=== PATIENT | male | born 1965 | race American Indian/Alaskan Native ===

== ENCOUNTER 2019-11-28 08:16 | Inpatient (IN) | payer BC ==
[2019-11-28 08:57] LABS: Basophils # (Auto) 0.1 K/mm3 (0.0-0.1); Basophils % (Auto) 1.1 % (0.0-1.8); Eosinophils % (Auto) 0.1 % (0.0-4.3); Hematocrit 41.6 % (35.5-45.6); Hemoglobin 14.1 gm/dl (11.8-15.2); Lymphocytes # (Auto) 0.9 K/mm3 (1.2-5.4); Lymphocytes % (Auto) 9.4 % (13.4-35.0); Mean Corpuscular HGB Conc 34 % (32-34); Mean Corpuscular Volume 90 fl (84-94); Monocytes # (Auto) 0.5 K/mm3 (0.0-0.8); Monocytes % (Auto) 4.6 % (0.0-7.3); Platelet Count 323 K/mm3 (140-440); Red Blood Count 4.63 M/mm3 (3.65-5.03); Red Cell Distribution Width 15.9 % (13.2-15.2)
[2019-11-28 09:12] LABS: Alanine Aminotransferase 15 units/L (7-56); BUN/Creatinine Ratio 18; Blood Urea Nitrogen 18 mg/dL (9-20); Calcium 10.2 mg/dL (8.4-10.2); Hemolysis Index 10
[2019-11-28] MEDS ORDERED: fentaNYL 100 MCG/2 ML INJ IV ONE (09:41)
[2019-11-28] MEDS ORDERED: ONDANSETRON 4 MG/2 ML INJ IV ONE (09:41)
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
[2019-11-28 12:21] LABS: Bilirubin,Urine NEG (Negative); Blood,Urine NEG (Negative); Color,Urine Yellow (Yellow); Mucus,Urine FEW /HPF
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
[2019-11-29] MEDS: MORPHINE 2 MG/1 ML INJ IV PRN ×4 (05:42→20:38)
[2019-11-29] MEDS: SODIUM CHLORIDE 0.9% 1000 ML 1,000 ML IV SCH ×3 (05:46→21:29)
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
--- NOTE | 2019-11-29 10:45 | Progress Note ---
Assessment and Plan - Patient Problems (1) Small bowel obstruction Current Visit: Yes Status: Acute Plan to address problem: Pt stable. Patient is currently in the process of completing the small bowel follow-through series. We are waiting the official report. Would hold off on starting a diet until we have the report back. We may need to do additional studies based on what the report shows. We will follow along. Please call with any questions Time=10min Subjective Date of service: 11/29/19 Patient Reports: Positive: no new complaints, pain is less, flatus, bowel movement, other (frustrated by lack of care). Negative: nausea, vomiting Objective Vital Signs - 12hr 11/28/19 11/28/19 11/28/19 22:46 23:00 23:16 Temperature Pulse Rate Respiratory Rate Blood Pressure 137/84 137/84 Blood Pressure [Left] O2 Sat by Pulse 99 98 98 Oximetry 11/28/19 11/28/19 11/28/19 23:20 23:30 23:46 Temperature Pulse Rate Respiratory Rate Blood Pressure 137/84 137/84 137/84 Blood Pressure [Left] O2 Sat by Pulse 100 97 98 Oximetry 11/29/19 11/29/19 11/29/19 00:16 00:21 04:25 Temperature 99.0 F 99.0 F 98.6 F Pulse Rate 88 88 84 Respiratory 17 17 17 Rate Blood Pressure 144/96 152/89 Blood Pressure 143/92 [Left] O2 Sat by Pulse 98 98 98 Oximetry 11/29/19 11/29/19 08:03 08:59 Temperature 98.8 F Pulse Rate 68 Respiratory 20 Rate Blood Pressure Blood Pressure 143/83 [Left] O2 Sat by Pulse 98 98 Oximetry - General physical appearance no distress, no pain, other (looks well) - Eyes normal occular movement - Respiratory normal expansion, normal respiratory effort - Abdomen soft, not tender, distended, not guarding, not rigid - Integumentary no rash, no growths, no abnormal pigmentation - Psychiatric oriented to time, oriented to person, oriented to place, speech is normal, memory intact - Labs 11/28/19 08:46 11/28/19 08:46
--- NOTE | 2019-11-29 15:51 | Progress Note ---
Assessment and Plan - Patient Problems (1) Small bowel obstruction Current Visit: Yes Status: Acute Plan to address problem: Conservative treatment NGT to low gumco suction sbft sURGERY consult appreciated (2) CAD (coronary artery disease) Current Visit: Yes Status: Chronic Qualifiers: Coronary Disease-Associated Artery/Lesion type: [place] artery [place] vs. transplanted heart: [place] heart Plan to address problem: Hold plavix and ismo (3) HTN (hypertension) Current Visit: Yes Status: Chronic Qualifiers: Hypertension type: essential hypertension Qualified Code(s): I10 - Essential (primary) hypertension Plan to address problem: Catapres patch prn (4) HLD (hyperlipidemia) Current Visit: Yes Status: Chronic Qualifiers: Hyperlipidemia type: mixed hyperlipidemia Qualified Code(s): E78.2 - Mixed hyperlipidemia Plan to address problem: Hold statins (5) DVT prophylaxis Current Visit: Yes Status: Acute Plan to address problem: On Heparin Subjective Date of service: 11/29/19 Principal diagnosis: SBO Interval history: 54-year-old male present with a chief complaint of abdominal pain for 2 to 3 weeks. The patient states he has had fullness in his abdomen for the past 2 to 3 weeks. The patient states this morning developed a constant abdominal pain that waxes and wanes. Patient describes the pain as sharp and diffuse in nature. Patient states he took a laxative at 04: 00 and had a bowel movement here in the ED but has not changed his pain. Patient denies nausea/vomiting, dysuria or hematuria. Patient denies fever. Patient currently gives his pain a score of 8/10 pATIENT TO GET sbft. - Objective - Constitutional Vitals: Vital Signs - 12hr 11/29/19 11/29/19 11/29/19 04:25 08:03 08:59 Temperature 98.6 F 98.8 F Pulse Rate 84 68 Respiratory 17 20 Rate Blood Pressure 152/89 Blood Pressure 143/83 [Left] O2 Sat by Pulse 98 98 98 Oximetry 11/29/19 11:08 Temperature 98.6 F Pulse Rate 72 Respiratory 20 Rate Blood Pressure Blood Pressure 157/99 [Left] O2 Sat by Pulse 98 Oximetry General appearance: Present: no acute distress, well-nourished - EENT Eyes: PERRL, EOM intact ENT: hearing intact, clear oral mucosa Ears: bilateral: normal - Neck Neck: supple, normal ROM - Respiratory Respiratory effort: normal Respiratory: bilateral: CTA - Breasts Breasts: normal - Cardiovascular Heart rate: 78 Rhythm: regular Heart Sounds: Present: S1 & S2. Absent: gallop, rub Extremities: pulses intact, No edema, normal color, Full ROM - Gastrointestinal General gastrointestinal: Present: soft, tender, distended, normal bowel sounds, hypoactive bowel sounds - Genitourinary Male genitourinary: normal - Integumentary Integumentary: clear, warm, dry - Musculoskeletal Musculoskeletal: 1, strength equal bilaterally - Neurologic Neurologic: moves all extremities - Psychiatric Psychiatric: memory intact, appropriate mood/affect, intact judgment & insight - Labs CBC & Chem 7: 11/28/19 08:46 11/28/19 08:46
[2019-11-30] MEDS: MORPHINE 2 MG/1 ML INJ IV PRN ×4 (00:46→13:19)
[2019-11-30] MEDS: SODIUM CHLORIDE 0.9% 1000 ML 1,000 ML IV SCH (05:05)
--- NOTE | 2019-11-30 08:50 | Progress Note ---
Assessment and Plan - Patient Problems (1) Small bowel obstruction Current Visit: Yes Status: Acute Plan to address problem: Pt stable. Clinically, the patient appears to be doing well. Probably is back at baseline. We are waiting the official report of the small bowel follow through. We discussed 2 options based on the test results. If there is a clear issue that we can address surgically, then we may make arrangements during this hospitalization to address it. Otherwise, if there is no clear etiology for his issues, then we will discharge him and continue the evaluation as an outpatient. Patient was in agreement with the plan. We will follow along. Please call with any questions Time=10min Subjective Date of service: 11/30/19 Patient Reports: Positive: no new complaints, feels better, pain is less, tolerating liquids well, flatus, bowel movement. Negative: nausea, vomiting Objective Vital Signs - 12hr 11/29/19 11/29/19 11/30/19 21:08 23:19 00:46 Temperature 98.4 F Pulse Rate 58 L Respiratory 18 18 20 Rate Blood Pressure 146/82 O2 Sat by Pulse 97 Oximetry 11/30/19 11/30/19 11/30/19 01:00 01:16 04:05 Temperature 98.7 F Pulse Rate 71 Respiratory 20 18 18 Rate Blood Pressure 146/95 O2 Sat by Pulse 98 98 Oximetry 11/30/19 11/30/19 05:03 07:31 Temperature 98.0 F Pulse Rate 69 Respiratory 20 19 Rate Blood Pressure 154/97 O2 Sat by Pulse 97 Oximetry - General physical appearance no distress, no pain, other (looks well) - Eyes normal occular movement - Respiratory normal expansion, normal respiratory effort - Abdomen soft, not tender, distended (mild) - Integumentary no rash, no growths, no abnormal pigmentation - Psychiatric oriented to time, oriented to person, oriented to place, speech is normal, memory intact - Labs 11/28/19 08:46 11/28/19 08:46
[2019-11-30] MEDS ORDERED: METOCLOPRAMIDE 10 MG/2 ML INJ IV NR (12:07)
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
[2019-11-30] MEDS ORDERED: METOCLOPRAMIDE 10 MG/2 ML INJ IV STA (13:19)
--- NOTE | 2019-11-30 14:42 | Fluoroscopy Report ---
SMALL BOWEL SERIES HISTORY: Abdominal pain, partial small bowel obstruction FINDINGS: Transit time of the oral contrast through the small bowel loops is mildly delayed at 4 hours. There a re multiple mildly dilated loops of mid small bowel measuring up to 3 cm in diameter. The duodenum an d terminal ileum are normal caliber. These findings suggest a low-grade partial small bowel obstructi on in the mid to distal small bowel. The transition point is not clearly identified on small bowel se isabel or CT. These findings were discussed with Dr. Cuellar of surgery. Fluoroscopic time/images: None. Signer Name: Randell Tubbs Jr, MD Signed: 11/30/2019 2:39 PM Workstation Name: [id number]
[2019-11-30 17:26] VITALS: BP 139/76
--- NOTE | 2019-11-30 18:20 | Discharge Summary ---
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 A low-grade partial small bowel obstruction could be considered. Diffuse ileus and gastroenteritis could also be considered. Please correlate with the patient's clinical presentation. Mild hepatic steatosis. Small umbilical hernia containing fat. Small bowel series Transit time of the oral contrast through the small bowel loops is mildly delayed at 4 hours. There are multiple mildly dilated loops of mid small bowel measuring up to 3 cm in diameter. The duodenum and terminal ileum are normal caliber. These findings suggest a low-grade partial small bowel obstruction in the mid to distal small bowel. The transition point is not clearly identified on small bowel series or CT. These findings were discussed with Dr. Cuellar of surgery. Hospital course: 54-year-old male present with a chief complaint of abdominal pain for 2 to 3 weeks. The patient states he has had fullness in his abdomen for the past 2 to 3 weeks. The patient states this morning developed a constant abdominal pain that waxes and wanes. Patient describes the pain as sharp and diffuse in nature. Patient states he took a laxative at 04: 00 and had a bowel movement here in the ED but has not changed his pain. Patient denies nausea/vomiting, dysuria or hematuria. Patient denies fever. Patient currently gives his pain a score of 8/10 Small bowel follow-through--normal (1) Small bowel obstruction Current Visit: Yes Status: Acute Plan to address problem: Conservative treatment Resolved (2) CAD (coronary artery disease) Current Visit: Yes Status: Chronic Qualifiers: Coronary Disease-Associated Artery/Lesion type: [place] artery [place] vs. transplanted heart: [place] heart Plan to address problem: Hold plavix and ismo (3) HTN (hypertension) Current Visit: Yes Status: Chronic Qualifiers: Hypertension type: essential hypertension Qualified Code(s): I10 - Essential (primary) hypertension Plan to address problem: Resume antihypertensives (4) HLD (hyperlipidemia) Current Visit: Yes Status: Chronic Qualifiers: Hyperlipidemia type: mixed hyperlipidemia Qualified Code(s): E78.2 - Mixed hyperlipidemia Plan to address problem: Resume statins Follow-up with surgery Dr. Cuellar in 3 to 7 days Return to emergency room if nausea vomiting abdominal pain happens again Disposition: DC-01 TO HOME OR SELFCARE Time spent for discharge: 35 minutes - Discharge Diagnoses (1) Small bowel obstruction Status: Acute (2) CAD (coronary artery disease) Status: Chronic Qualifiers: Coronary Disease-Associated Artery/Lesion type: [place] artery [place] vs. transplanted heart: [place] heart (3) HTN (hypertension) Status: Chronic Qualifiers: Hypertension type: essential hypertension Qualified Code(s): I10 - Essential (primary) hypertension (4) HLD (hyperlipidemia) Status: Chronic Qualifiers: Hyperlipidemia type: mixed hyperlipidemia Qualified Code(s): E78.2 - Mixed hyperlipidemia (5) DVT prophylaxis Status: Acute Core Measure Documentation - Palliative Care Palliative Care/ Comfort Measures: Not Applicable - Core Measures Any of the following diagnoses?: none Exam - Constitutional Vitals: Temp Pulse Resp BP Pulse Ox 98.2 F 62 18 139/76 98 11/30/19 16:41 11/30/19 16:41 11/30/19 16:41 11/30/19 16:41 11/30/19 16:41 General appearance: Present: no acute distress, well-nourished - EENT Eyes: Present: PERRL ENT: hearing intact, clear oral mucosa - Neck Neck: Present: supple, normal ROM - Respiratory Respiratory effort: normal Respiratory: bilateral: CTA - Cardiovascular Heart rate: 76 Rhythm: regular Heart Sounds: Present: S1 & S2. Absent: rub, click - Extremities Extremities: pulses symmetrical, No edema Peripheral Pulses: within normal limits - Abdominal General gastrointestinal: Present: soft, non-tender, non-distended, normal bowel sounds Male genitourinary: Present: normal - Integumentary Integumentary: Present: clear, warm, dry - Musculoskeletal Musculoskeletal: gait normal, strength equal bilaterally - Psychiatric Psychiatric: appropriate mood/affect, intact judgment & insight - Neurologic Neurologic: CNII-XII intact, moves all extremities Plan Activity: no restrictions, advance as tolerated Diet: clear liquids (For 3 to 4 days) Follow up with: PRIMARY CARE, [Primary Care Provider] - 3-5 Days
== END 2019-11-30 19:09 | disposition home or self-care (01) | DRG 390 ==
LOC: ED 08:16 → 4A 14:07 → 3B-SURG 22:04
PROVIDERS: ADMIT Internal Medicine; ATTEND Internal Medicine
DX: K56.609 Unspecified intestinal obstruction, unspecified as to partial versus complete obstruction (principal); I25.10 Atherosclerotic heart disease of native coronary artery without angina pectoris; I10 Essential (primary) hypertension; F10.10 Alcohol abuse, uncomplicated; E78.2 Mixed hyperlipidemia; I25.2 Old myocardial infarction; Z95.1 Presence of aortocoronary bypass graft; Z95.5 Presence of coronary angioplasty implant and graft; Z79.899 Other long term (current) drug therapy; Z79.82 Long term (current) use of aspirin
CPT/HCPCS: 36415; 74177; 74248; 80053; 81001; 85025; G0378; J2270; J2405; J2765; J3010; J7030; Q9967